=== PATIENT | female | born 1980 | race Caucasian/White ===

== ENCOUNTER 2019-05-09 08:17 | Emergency (ER) | payer BC ==
[~2019-05-09] VITALS: Ht 165.1 cm; Wt 82.1 kg
[2019-05-09 08:20] VITALS: Ht 165.1 cm; Wt 82.1 kg
[2019-05-09 10:17] VITALS: BP 131/82
== END 2019-05-09 10:17 | disposition home or self-care (01) ==
LOC: ED 08:17
DX: S41.112A Laceration without foreign body of left upper arm, initial encounter (principal); S63.91XA Sprain of unspecified part of right wrist and hand, initial encounter; S61.512D Laceration without foreign body of left wrist, subsequent encounter; Z86.2 Personal history of diseases of the blood and blood-forming organs and certain disorders involving the immune mechanism; W07.XXXA Fall from chair, initial encounter; Y93.89 Activity, other specified; Y92.89 Other specified places as the place of occurrence of the external cause; Y99.8 Other external cause status